=== PATIENT | female | born 1995 | race Caucasian/White ===

== ENCOUNTER 2019-09-25 13:22 | Emergency (ER) | payer BC ==
--- NOTE | 2019-09-25 14:00 | ERPHSYRPT ---
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 states had just gotten home from breakfast and noticed small amount "orange" blood in underwear when going to restroom. pt also states small amount blood noticed when wiping. pt denies any abd pain or cramping. pt states she is 12 wks , confirmed by US. this is first . pt ambulatory to room, and self assist into gown. pt denies pain, and not tender to plapation. pt A& Ox3. Physician History: vaginal bleeding onset just before coming to ER had just gotten home from breakfast and noticed small amount "orange" blood in underwear when going to restroom. pt also states small amount blood noticed when wiping. pt denies any abd pain or cramping. pt states she is 12 wks , confirmed by US. this is first . Timing/Duration: today Activites at Onset: none Onset Location: vaginal Pain Radiation: none Severity of Pain-Max: none Severity of Pain-Current: none Prior abdominal problems: none Sexual intercourse history: non-contributory Modifying Factors: Improves With: nothing Associated Symptoms: denies symptoms Allergies/Adverse Reactions: latex Allergy (Verified 09/25/19 13:32) Home Medications: Vits W-Ca,Fe,FA(<1Mg) [] 1 each PO 09/25/19 [History] Hx Tetanus, Diphtheria Vaccination/Date Given: No Hx Influenza Vaccination/Date Given: No Hx Pneumococcal Vaccination/Date Given: No - Review of Systems Constitutional: No Fever, No Chills Eyes: No Symptoms Ears, Nose, & Throat: No Symptoms Respiratory: No Cough, No Dyspnea Cardiac: No Chest Pain, No Edema, No Syncope Abdominal/Gastrointestinal: No Abdominal Pain, No Nausea, No Vomiting, No Diarrhea Genitourinary Symptoms: No Dysuria Musculoskeletal: No Back Pain, No Neck Pain Skin: No Rash Neurological: No Dizziness, No Focal Weakness, No Sensory Changes Psychological: No Symptoms Endocrine: No Symptoms All Other Systems: Reviewed and Negative - Past Medical History Pertinent Past Medical History: No Neurological History: No Pertinent History ENT History: No Pertinent History Cardiac History: No Pertinent History Respiratory History: No Pertinent History Endocrine Medical History: No Pertinent History Musculoskeletal History: No Pertinent History GI Medical History: No Pertinent History History: No Pertinent History Psycho-Social History: No Pertinent History Female Reproductive Disorders: No Pertinent History - Past Surgical History Past Surgical History: Yes Neuro Surgical History: No Pertinent History Cardiac: No Pertinent History Respiratory: No Pertinent History Gastrointestinal: No Pertinent History Genitourinary: No Pertinent History Musculoskeletal: Other Female Surgical History: No Pertinent History Other Surgical History: broken L elbow, surgical repair - Social History Smoking Status: Never smoker Exposure to second hand smoke: No Drug Use: none Patient Lives Alone: No - Female History Hx Last Menstrual Period: 06/30/19 Hx Now: Yes Expected Date of Delivery: 04/04/20 Gestational Age: 12 - Nursing Vital Signs Nursing Vital Signs: Initial Vital Signs Temperature 98.2 F 09/25/19 13:34 Pulse Rate 91 H 09/25/19 13:34 Respiratory Rate 20 09/25/19 13:34 Blood Pressure 158/85 09/25/19 13:34 O2 Sat by Pulse Oximetry 99 09/25/19 13:34 Pain Scale Pain Intensity 0 - Physical Exam General Appearance: no apparent distress, alert Eye Exam: PERRL/EOMI, eyes nml inspection Ears, Nose, Throat Exam: normal ENT inspection, TMs normal, pharynx normal, moist mucous membranes Neck Exam: normal inspection, non-tender, supple, full range of motion Respiratory Exam: normal breath sounds, lungs clear, No respiratory distress Cardiovascular Exam: regular rate/rhythm, normal heart sounds, normal peripheral pulses Gastrointestinal/Abdomen Exam: soft, No tenderness, No mass Back Exam: normal inspection, normal range of motion, No CVA tenderness, No vertebral tenderness Extremity Exam: normal inspection, normal range of motion, pelvis stable Neurologic Exam: alert, oriented x 3, cooperative, senior credit analyst II-XII nml as tested, normal mood/affect, sensation nml, No motor deficits Skin Exam: normal color, warm, dry Lymphatic Exam: No adenopathy SpO2: 99 - Course Nursing assessment & vital signs reviewed: Yes Ordered Tests: Active Orders 24 hr Category Date Time Status CULTURE,URINE Stat Lab 09/25/19 14:20 Received HCG,QUALITATIVE URINE Stat Lab 09/25/19 14:20 Completed UA W/RFX UR CULTURE Stat Lab 09/25/19 14:20 Completed Lab/Rad Data: Laboratory Results 09/25/19 09/25/19 Range/Units 14:20 14:20 Urine Color YELLOW (YELLOW) Urine Appearance CLOUDY (CLEAR) Urine pH 5.0 (5-6) Ur Specific Sullivan 1.020 (1.005-1.025) Urine Protein NEGATIVE (Negative) Urine Ketones SMALL (NEGATIVE) Urine Blood LARGE (0-5) Anshul/ul Urine Nitrite NEGATIVE (NEGATIVE) Urine Bilirubin NEGATIVE (NEGATIVE) Urine Urobilinogen NEGATIVE (0-1) mg/dL Ur Leukocyte Esterase MODERATE (NEGATIVE) Urine WBC (Auto) 51-100 (0-5) /HPF Urine RBC (Auto) 3-5 (0-2) /HPF U Epithel Cells (Auto) RARE (FEW) /HPF Urine Bacteria (Auto) FEW (NEGATIVE) /HPF Unidentified Crystals >100 (NEGATIVE) /HPF Urine Mucus (Auto) SLIGHT (NEGATIVE) /HPF Urine Culture Reflexed YES (NO) Urine Glucose NEGATIVE (NEGATIVE) mg/dL Urine HCG, Qual POSITIVE (Negative) - Progress Progress: improved Air Movement: good Blood Culture(s) Obtained: No Antibiotics given: No Counseled pt/family regarding: lab results, diagnosis, need for follow-up - Departure Departure Disposition: Home Clinical Impression: and infectious disease in first trimester UTI (urinary tract infection) during Qualifiers: Trimester: first trimester Qualified Code(s): O23.41 - Unspecified infection of urinary tract in , first trimester Condition: Stable Critical Care Time: No Referrals: MAHSA HARMAN [Primary Care Provider] - Instructions: Symptoms, Bleeding With (DC), Urinary Tract Infections in Additional Instructions: start antibiotics which is given to you by Dr Phillips. Discharge/Care Plan JUSTIN GARCIA Viktor was seen on 09/25/19 in the Emergency Room. The patient was counseled regarding Diagnosis,Lab results, Imaging studies, need for follow up and when to return to the Emergency Room. Prescriptions given: Discharge Note I have spoken with the patient and/or caregivers. I have explained the patient' s condition, diagnosis and treatment plan based on the information available to me at this time. I have answered the patient's and/or caregiver's questions and addressed any concerns. The patient and/or caregivers have as good understanding of the patient's diagnosis, condition and treatment plan as can be expected at this point. The vital signs have been stable. The patient's condition is stable and appropriate for discharge from the emergency department. The patient will pursue further outpatient evaluation with the primary care physician or other designated or consulting physician as outlined in the discharge instructions. The patient and/or caregivers are agreeable to this plan of care and follow-up instructions have been explained in detail. The patient and/or caregivers have received these instruction. The patient/and or caregivers are aware that any significant change in condition or worsening of symptoms should prompt an immediate return to this or the closest emergency department or call 911. JUSTIN GARCIA Viktor was seen on 09/25/19 n the Emergency Room. At that time you were treated for an emergent condition, during your visit Laboratory, Radiology and/or other procedures may have been ordered. It is very important that you follow-up with your Primary Care Physician MAHSA HARMAN within the next 24-48 hours to review your Emergency Room visit and the final results of testing that was ordered. Some test results such as Urine Cultures, Blood Cultures, and other cultures if ordered will not be finalized for 24-48 hours. If you do not have a Primary Care Provider please call the medical records department at [phone] to obtain a copy of your results or you may sign into our patient portal to obtain these results by visiting us @ [email or web address] and completing the following steps: 1. Click on the Patient Portal link 2. Click the Patient Self Enrollment Link to complete the enrollment form and entering your 3. Once the enrollment form is completed you will receive an email with a temporary ID and password at the email address you provided. 4. Next choose a user name and password. Your user name must be at least 4 characters long and your password must be at least 4 characters long. 5. Choose a security question from the list and provide your answer to the question. If you already have signed into the Health Portal you may access your Health Care Information 31/03 by the following steps: 1. Login to our website @ [email or web address] 2. Enter your original user name and password. FAQS The [facility] Health Portal is an online tool that contains your Lab Results, Radiology Reports, Visit History, Discharge Instructions and Health Summary Lab and Radiology Results will not be available for 72 hours on the portal. The Portal is a secure site, passwords are encryted and URLs are re-written so they cannot be copied and pasted. You and authorized family members are the only ones who can access your Portal. Also there is a timeout feature that protects your information if you leave the Portal page open. If you have technical difficulty please use the Contact Us link on the page this will allow you to submit any questions you have regarding the Portal or you may contact the Medical Record Department at [phone] ext [phone].
[2019-09-25 14:35] VITALS: BP 115/67; PULSE 82
[2019-09-25 14:41] LABS: Appearance CLOUDY (CLEAR); Bacteria FEW /HPF (NEGATIVE); Bilirubin NEGATIVE (NEGATIVE); Blood LARGE Ery/ul (0-5); Crystals Unidentified >100 /HPF (NEGATIVE); Epithelial Cells RARE /HPF (FEW); Glucose NEGATIVE (NEGATIVE); Ketones SMALL (NEGATIVE); Leukocyte Esterase MODERATE (NEGATIVE); Mucus SLIGHT /HPF (NEGATIVE); Nitrite NEGATIVE (NEGATIVE); Protein,Urine Dip NEGATIVE (Negative); Urobilinogen NEGATIVE mg/dL (0-1); WBC 51-100 /HPF (0-5)
[2019-09-25 14:47] VITALS: O2SAT 99
== END 2019-09-25 14:59 | disposition home or self-care (01) ==
LOC: ED 13:22
DX: O23.41 Unspecified infection of urinary tract in pregnancy, first trimester (principal); Z3A.12 12 weeks gestation of pregnancy
CPT/HCPCS: 81001; 84703; 87077; 87086; 87186; 99283

== ENCOUNTER 2020-03-01 10:41 | Observation (INO) | payer BC ==
[2020-03-01 11:17] VITALS: PULSE 117
[2020-03-01 12:33] VITALS: BP 121/60
--- NOTE | 2020-03-01 12:54 | XRAY ---
Indication: Size less than dates. Ultrasound biophysical profile study was performed. There is a single viable intrauterine with heart rate 142 BPM. Four-quadrant TREVIN is 10.3 cm. 2 points given for breathing, movements, tone, and qualitative amniotic fluid volume. Impression: Total biophysical profile score is 8 out of 8.
--- NOTE | 2020-03-01 12:58 | XRAY ---
Indication: Size less than dates. 2-dimensional OB ultrasound performed. Comparison: February 14, 2020. Again there is a single viable intrauterine in cephalic presentation. heart rate 142 BPM. anatomy previously documented. Anterior placenta without abruption/previa. Cervical length is 2.4 cm. BPD measures 7.60 cm corresponding to 30 weeks 3 days. HC measures 28.00 cm corresponding to 30 weeks 5 days. AC measures 29.51 cm corresponding to 33 weeks 3 days. FL measures 6.08 cm corresponding to 31 weeks 4 days. Estimated weight 4 lbs. 5 oz., +/-10 ounces. Approximately 4 percentile. TREVIN is 10.3 cm. Impression: Again single viable intrauterine with mean gestational age 31 weeks 4 days. There has been no significant progression of . Fetus continues to measure smaller now 22 days smaller with respect to first exam August 18, 2019.
[2020-03-01 13:35] LABS: Absolute Neutrophil Ct (ANC) 8.09 (1.4-6.9); BASOPHIL % 0.2 % (0.0-0.4); Basophil (Absolute #) 0.02 (0-0.4); Eosinophil % 0.7 % (0.00-5.0); Eosinophil (Absolute #) 0.07 (0-0.5); Hematocrit 34.5 % (35-47); Hemoglobin 11.4 gm/dl (12.0-16.0); Lymphocyte (Absolute #) 1.63 (1.0-4.6); Lymphocytes % 15.3 % (24.0-44.0); Mean Cell Volume 93.8 fl (78-100); Mean Platelet Volume 11.9 fl (7.5-11.0); Monocyte (Absolute #) 0.83 (0.0-1.3); Monocytes % 7.8 % (0.0-12.0); Platelet Count 209 K/mm3 (150-450); Red Blood Count 3.68 M/mm3 (4.1-5.4); Red Cell Distribution Width 13.9 % (11.5-14.0); White Blood Count 10.6 K/mm3 (4.0-10.5)
[2020-03-01 13:36] LABS: Appearance SLIGHTLY CLOUDY (CLEAR); Bilirubin NEGATIVE (NEGATIVE); Blood NEGATIVE Ery/ul (0-5); Glucose NEGATIVE (NEGATIVE); Ketones NEGATIVE (NEGATIVE); Leukocyte Esterase TRACE (NEGATIVE); Nitrite POSITIVE (NEGATIVE); Protein,Urine Dip NEGATIVE (Negative); Specific Gravity 1.008 (1.005-1.025); Urobilinogen NEGATIVE mg/dL (0-1)
[2020-03-03 14:40] LABS: RPR Screen Non Reactive (Non Reactive)
== END 2020-03-01 13:15 | disposition home or self-care (01) ==
LOC: OB 10:41
PROVIDERS: ADMIT Family Medicine; ATTEND Family Medicine
DX: Z34.91 Encounter for supervision of normal pregnancy, unspecified, first trimester (principal)
CPT/HCPCS: 0064U; 36415; 59025; 76816; 76819; 81003; 85025; 86317; 86592; 86593; G0378

== ENCOUNTER 2020-03-09 07:13 | Observation (INO) | payer BC ==
[2020-03-09 17:51] VITALS: BP 123/57; PULSE 97; O2SAT 96
--- NOTE | 2020-03-09 18:32 | XRAY ---
Indication: Intrauterine growth retardation. Ultrasound biophysical profile study was performed and compared to March 01, 2020. There is again a single viable intrauterine with heart rate 163 BPM. Four-quadrant TREVIN is 10.9 cm, previously 10.3 cm. Cervical length is 2.4 cm. 2 points given for breathing, tone, and qualitative amniotic fluid volume. 0 points for movement. Impression: Total biophysical profile score is now 6 out of 8, previously 8 out of 8.
== END 2020-03-09 17:55 | disposition home or self-care (01) ==
LOC: EDSTATUS 15:56 → OB 15:57
PROVIDERS: ADMIT Family Medicine; ATTEND Family Medicine
DX: O35.8XX9 Maternal care for other (suspected) fetal abnormality and damage, other fetus (principal)
CPT/HCPCS: 59025; 76819; G0378

== ENCOUNTER 2020-07-27 05:28 | Emergency (ER) | payer BC ==
--- NOTE | 2020-07-27 07:01 | ERPHSYRPT ---
- History of Present Illness Source: patient Exam Limitations: no limitations Patient Subjective Stated Complaint: pt states she is approx 12 wks gestation with twins and had some bright red blood when she wiped tonight. Triage Nursing Assessment: pt alert and oriented, answers questions approp. pt ambualtory with steady gait noted. respirations ononlabored. skin pink warm and dry. Timing/Duration: today Activites at Onset: sleep Quality: other (No pain) Onset Location: other (No pain) Pain Radiation: none Severity of Pain-Max: none Severity of Pain-Current: none Modifying Factors: Improves With: other (Dental bleeding) Associated Symptoms: denies symptoms Hx Tetanus, Diphtheria Vaccination/Date Given: Yes Hx Influenza Vaccination/Date Given: Yes (2019) Hx Pneumococcal Vaccination/Date Given: No Immunizations Up to Date: Yes <NHUNG BROTHERS - Last Filed: 07/27/20 06:56> <GERMAINE OBANDO - Last Filed: 07/27/20 09:24> - History of Present Illness Time Seen by Provider: 07/27/20 06:25 Physician History: This is a 24-year-old white female who is 12 weeks with twins. She sees a OB specialist tomorrow, and her primary OB next Friday. Patient denies abdominal pain or cramping. 5 days ago she noticed vaginal spotting. This morning, there was a significant amount of blood present so she came into the emergency department for evaluation. Patient has had no nausea vomiting or diarrhea. She has no chest pain or shortness of breath. (NHUNG BROTHERS) Allergies/Adverse Reactions: latex Allergy (Verified 07/27/20 06:13) Home Medications: Vits W-Ca,Fe,FA(<1Mg) [] 1 each PO DAILY 09/25/19 [History] Loratadine 10 mg [Claritin 10 mg] 10 mg PO DAILY PRN PRN 03/01/20 [History] Cephalexin Mh 500 mg [Keflex 500 mg] 500 mg PO BID 03/09/20 [History] Travel Risk - International Travel Have you traveled outside of the country in past 3 weeks: No - Coronavirus Screening Are you exhibiting any of the following symptoms?: No Close contact with a COVID-19 positive Pt in past 14-21 Days: No <NHUNG BROTHERS - Last Filed: 07/27/20 06:56> - Past Medical History Pertinent Past Medical History: No Neurological History: No Pertinent History ENT History: No Pertinent History Cardiac History: No Pertinent History Respiratory History: No Pertinent History Endocrine Medical History: No Pertinent History Musculoskeletal History: No Pertinent History GI Medical History: No Pertinent History History: No Pertinent History Psycho-Social History: No Pertinent History Female Reproductive Disorders: No Pertinent History - Past Surgical History Past Surgical History: Yes Neuro Surgical History: No Pertinent History Cardiac: No Pertinent History Respiratory: No Pertinent History Gastrointestinal: No Pertinent History Genitourinary: No Pertinent History Musculoskeletal: Orthopedic Surgery, Other Female Surgical History: No Pertinent History Other Surgical History: broken L elbow, surgical repair - Social History Smoking Status: Never smoker Exposure to second hand smoke: No Drug Use: none Patient Lives Alone: No - Female History Hx Last Menstrual Period: 04/26/2020 Hx Now: Yes Expected Date of Delivery: 02/04/21 Gestational Age: 12 weeks <NHUNG BROTHERS - Last Filed: 07/27/20 06:56> - Review of Systems Constitutional: No Symptoms Eyes: No Symptoms Ears, Nose, & Throat: No Symptoms Respiratory: No Symptoms Cardiac: No Symptoms Abdominal/Gastrointestinal: No Symptoms Genitourinary Symptoms: Vaginal Bleeding Musculoskeletal: No Symptoms Skin: No Symptoms Neurological: No Symptoms Psychological: No Symptoms Endocrine: No Symptoms Hematologic/Lymphatic: No Symptoms Immunological/Allergic: No Symptoms All Other Systems: Reviewed and Negative <NHUNG BROTHERS - Last Filed: 07/27/20 06:56> - Physical Exam General Appearance: no apparent distress, alert, anxiety Eye Exam: PERRL/EOMI, eyes nml inspection Ears, Nose, Throat Exam: normal ENT inspection, moist mucous membranes Neck Exam: normal inspection, non-tender, supple, full range of motion Respiratory Exam: normal breath sounds, lungs clear, No chest tenderness, No respiratory distress, No airway intact Cardiovascular Exam: tachycardia Gastrointestinal/Abdomen Exam: soft, normal bowel sounds, No tenderness Rectal Exam: not done Back Exam: normal inspection, normal range of motion, No CVA tenderness Extremity Exam: normal inspection, normal range of motion, pelvis stable Neurologic Exam: alert, oriented x 3, cooperative, hide inspector and sorter II-XII nml as tested, normal mood/affect, nml cerebellar function, nml station & gait, sensation nml Skin Exam: normal color, warm, dry Lymphatic Exam: No adenopathy SpO2 Interpretation: normal SpO2: 98 O2 Delivery: Room Air <NHUNG BROTHERS - Last Filed: 07/27/20 06:56> - Nursing Vital Signs Nursing Vital Signs: Initial Vital Signs Temperature 98.1 F 07/27/20 06:05 Pulse Rate 106 H 07/27/20 06:05 Respiratory Rate 18 07/27/20 06:05 Blood Pressure 115/83 07/27/20 06:05 O2 Sat by Pulse Oximetry 98 07/27/20 06:05 Pain Scale Pain Intensity 0 - Course Nursing assessment & vital signs reviewed: Yes <NHUNG BROTHERS - Last Filed: 07/27/20 06:56> - Radiology Ultrasound Exam OB Ultrasound: Other (Viable intrauterine twin in comparison to 06/19/2020; twin measures 12 weeks and 6 days with normal progression of . No new/acute findings; no abnormal subchorionic fluid collection) <GERMAINE OBANDO - Last Filed: 07/27/20 09:24> Ordered Tests: Active Orders 24 hr Category Date Time Status Orthostatic Vital Signs STAT Care 07/27/20 07:37 Active OB <14 WKS 1ST GESTATION [US] Stat Exams 07/27/20 06:51 Completed OB <14 WKS ADDL GESTATION [US] Routine Exams 07/27/20 07:13 Taken CBC W DIFF Stat Lab 07/27/20 06:50 Completed CMP Stat Lab 07/27/20 06:50 Completed CULTURE,URINE Stat Lab 07/27/20 06:52 Received PT INR [PROTIME WITH INR] Stat Lab 07/27/20 07:35 Completed PTT Stat Lab 07/27/20 07:35 Completed UA W/RFX UR CULTURE Stat Lab 07/27/20 06:52 Completed Lab/Rad Data: Laboratory Result Diagrams 07/27/20 06:50 07/27/20 06:50 Laboratory Results 07/27/20 07/27/20 07/27/20 Range/Units 07:35 06:52 06:50 WBC (4.0-10.5) K/mm3 RBC (4.1-5.4) M/mm3 Hgb (12.0-16.0) gm/dl Hct (35-47) % MCV (78-100) fl MCH (26-32) pg MCHC (32-36) g/dl RDW (11.5-14.0) % Plt Count (150-450) K/mm3 MPV (7.5-11.0) fl Gran % (36.0-66.0) % Eos # (Auto) (0-0.5) Absolute Lymphs (auto) (1.0-4.6) Absolute Monos (auto) (0.0-1.3) Lymphocytes % (24.0-44.0) % Monocytes % (0.0-12.0) % Eosinophils % (0.00-5.0) % Basophils % (0.0-0.4) % Absolute Granulocytes (1.4-6.9) Basophils # (0-0.4) PT 11.8 (9.95-12.35) SECONDS INR 1.04 (0.8-3.0) APTT 26.9 (25.3-37.0) SECONDS Sodium 134 L (137-145) mmol/L Potassium 3.8 (3.5-5.1) mmol/L Chloride 107 (98-107) mmol/L Carbon Dioxide 23 (22-30) mmol/L Anion Gap 7.8 (5-15) MEQ/L BUN 4 L (7-17) mg/dL Creatinine 0.51 L (0.52-1.04) mg/dL Estimated GFR > 60.0 ML/MIN Glucose 90 (74-106) mg/dL Calcium 9.4 (8.4-10.2) mg/dL Total Bilirubin 0.20 (0.2-1.3) mg/dL AST 21 (14-36) U/L ALT 17 (0-35) U/L Alkaline Phosphatase 83 (38-126) U/L Serum Total Protein 6.6 (6.3-8.2) g/dL Albumin 3.4 L (3.5-5.0) g/dL Urine Color YELLOW (YELLOW) Urine Appearance SLIGHTLY CLOUDY (CLEAR) Urine pH 6.0 (5-6) Ur Specific Scott 1.019 (1.005-1.025) Urine Protein 30 (Negative) Urine Ketones NEGATIVE (NEGATIVE) Urine Blood LARGE (0-5) Anshul/ul Urine Nitrite NEGATIVE (NEGATIVE) Urine Bilirubin NEGATIVE (NEGATIVE) Urine Urobilinogen NEGATIVE (0-1) mg/dL Ur Leukocyte Esterase SMALL (NEGATIVE) Urine WBC (Auto) 6-10 (0-5) /HPF Urine RBC (Auto) 3-5 (0-2) /HPF U Epithel Cells (Auto) RARE (FEW) /HPF Urine Bacteria (Auto) RARE (NEGATIVE) /HPF Urine Mucus (Auto) SLIGHT (NEGATIVE) /HPF Urine Culture Reflexed YES (NO) Urine Glucose NEGATIVE (NEGATIVE) mg/dL 07/27/20 Range/Units 06:50 WBC 8.7 (4.0-10.5) K/mm3 RBC 4.24 (4.1-5.4) M/mm3 Hgb 12.2 (12.0-16.0) gm/dl Hct 37.0 (35-47) % MCV 87.3 (78-100) fl MCH 28.8 (26-32) pg MCHC 33.0 (32-36) g/dl RDW 15.4 H (11.5-14.0) % Plt Count 208 (150-450) K/mm3 MPV 12.5 H (7.5-11.0) fl Gran % 67.2 H (36.0-66.0) % Eos # (Auto) 0.13 (0-0.5) Absolute Lymphs (auto) 2.08 (1.0-4.6) Absolute Monos (auto) 0.62 (0.0-1.3) Lymphocytes % 24.0 (24.0-44.0) % Monocytes % 7.1 (0.0-12.0) % Eosinophils % 1.5 (0.00-5.0) % Basophils % 0.2 (0.0-0.4) % Absolute Granulocytes 5.83 (1.4-6.9) Basophils # 0.02 (0-0.4) PT (9.95-12.35) SECONDS INR (0.8-3.0) APTT (25.3-37.0) SECONDS Sodium (137-145) mmol/L Potassium (3.5-5.1) mmol/L Chloride (98-107) mmol/L Carbon Dioxide (22-30) mmol/L Anion Gap (5-15) MEQ/L BUN (7-17) mg/dL Creatinine (0.52-1.04) mg/dL Estimated GFR ML/MIN Glucose (74-106) mg/dL Calcium (8.4-10.2) mg/dL Total Bilirubin (0.2-1.3) mg/dL AST (14-36) U/L ALT (0-35) U/L Alkaline Phosphatase (38-126) U/L Serum Total Protein (6.3-8.2) g/dL Albumin (3.5-5.0) g/dL Urine Color (YELLOW) Urine Appearance (CLEAR) Urine pH (5-6) Ur Specific Scott (1.005-1.025) Urine Protein (Negative) Urine Ketones (NEGATIVE) Urine Blood (0-5) Anshul/ul Urine Nitrite (NEGATIVE) Urine Bilirubin (NEGATIVE) Urine Urobilinogen (0-1) mg/dL Ur Leukocyte Esterase (NEGATIVE) Urine WBC (Auto) (0-5) /HPF Urine RBC (Auto) (0-2) /HPF U Epithel Cells (Auto) (FEW) /HPF Urine Bacteria (Auto) (NEGATIVE) /HPF Urine Mucus (Auto) (NEGATIVE) /HPF Urine Culture Reflexed (NO) Urine Glucose (NEGATIVE) mg/dL - Progress Counseled pt/family regarding: lab results, diagnosis, rad results <NHUNG BROTHERS - Last Filed: 07/27/20 06:56> - Progress Progress: improved Discussed with : Geno (At 09:15, spoke with Dr. De Oliveira, covering for patient's primary OB, Dr. Levine. In discussion of the lab work, urinalysis and ultrasound, Dr. De Oliveira felt patient was fine to be discharged home and will start the patient on cefazolin equivalent of cephalexin orally since patient had in May) Will see patient in: office <GERMAINE OBANDO - Last Filed: 07/27/20 09:24> - Progress Progress Note: 07/27/20 07:05 I reviewed patient history, condition physical findings and pending laboratory and x-ray studies. I transferred care to Dr. Obando at time of shift change and he accepts the patient and will make the final disposition. (NHUNG BROTHERS) 07/27/20 09:12 Patient denies any vaginal bleeding or leakage of fluids. She denies any abdominal pain, back pain, flank pain or any fever subjectively and she had a soft abdomen with no tenderness on repeat examination 07/27/20 09:22 Patient had her care transferred to or to evaluate and follow-up imaging studies and lab work due to having concerns for potential bleeding as she is 12 weeks with twins. Patient's ultrasound showed viable twin with no change from previous comparison ultrasound with no signs of any significant subchorionic fluid accumulation and her lab work was within normal limits, but her urinalysis showed some signs of potential infection and reviewing past urine cultures there was E. coli that grew out twice, with one most recently May 2020 that was susceptible to cefazolin, so patient be discharged home with a 5- day course of Keflex and will adjust medication according to urine culture as needed. Patient has an appointment with maternal- medicine in [place], [place] on 07/28/2020 and patient understands to keep that appointment. I reviewed with patient in detail with signs and symptoms return back to emergency room as on reevaluation patient was asymptomatic and had no concerning signs on her vitals and lab work that required further inpatient monitoring or further treatment in the emergency department or as an inpatient or on labor and delivery. (GERMAINE OBANDO) - Departure Departure Disposition: Home Critical Care Time: No <NHUNG BROTHERS - Last Filed: 07/27/20 06:56> <GERMAINE OBANDO - Last Filed: 07/27/20 09:24> - Departure Clinical Impression: Vaginal bleeding in patient after first trimester, Acute cystitis with hematuria Condition: Stable Referrals: CATY LEVINE MD [Primary Care Provider] - Follow Up with PCP/3 days Instructions: Threatened Miscarriage (DC), Bleeding With (DC) Additional Instructions: Return immediately back to the emergency room if any new abdominal pain, new fever, new vaginal bleeding, new leakage of fluid, any swelling in her hands or face, new overwhelming headache, new vision changes, new swelling on 1 side of the body of your extremities versus the other, new shortness of breath, new loss of smell, new cough or any other concerning signs or symptoms that were not present at today's emergency room visit for immediate reevaluation in the emergency department Prescriptions: Cephalexin Mh 500 mg [Keflex 500 mg] 500 mg PO TID #15 capsule
[2020-07-27 07:13] LABS: Absolute Neutrophil Ct (ANC) 5.83 (1.4-6.9); BASOPHIL % 0.2 % (0.0-0.4); Basophil (Absolute #) 0.02 (0-0.4); Eosinophil % 1.5 % (0.00-5.0); Eosinophil (Absolute #) 0.13 (0-0.5); Hemoglobin 12.2 gm/dl (12.0-16.0); Lymphocyte (Absolute #) 2.08 (1.0-4.6); Mean Cell Volume 87.3 fl (78-100); Mean Corpuscular Hemoglobin 28.8 pg (26-32); Mean Platelet Volume 12.5 fl (7.5-11.0); Monocyte (Absolute #) 0.62 (0.0-1.3); Monocytes % 7.1 % (0.0-12.0); Neutrophil % 67.2 % (36.0-66.0); Platelet Count 208 K/mm3 (150-450); Red Blood Count 4.24 M/mm3 (4.1-5.4); Red Cell Distribution Width 15.4 % (11.5-14.0); White Blood Count 8.7 K/mm3 (4.0-10.5)
[2020-07-27 07:44] LABS: ALBUMIN 3.4 g/dL (3.5-5.0); ALKALINE PHOSPHATASE 83 U/L (38-126); BLOOD UREA NITROGEN 4 mg/dL (7-17); CHLORIDE 107 mmol/L (98-107); Calcium 9.4 mg/dL (8.4-10.2); Carbon Dioxide 23 mmol/L (22-30); Creatinine 1 0.51 mg/dL (0.52-1.04); EST GLOMERULAR FILTRATION RATE > 60.0 ML/MIN; Glucose 90 mg/dL (74-106); SGOT/AST 21 U/L (14-36); SGPT/ALT 17 U/L (0-35); SODIUM 134 mmol/L (137-145); Total Protein 6.6 g/dL (6.3-8.2)
[2020-07-27 07:46] LABS: Potassium 3.8 mmol/L (3.5-5.1)
[2020-07-27 07:46] LABS: Appearance SLIGHTLY CLOUDY (CLEAR); Bacteria RARE /HPF (NEGATIVE); Bilirubin NEGATIVE (NEGATIVE); Blood LARGE Ery/ul (0-5); Epithelial Cells RARE /HPF (FEW); Glucose NEGATIVE (NEGATIVE); Ketones NEGATIVE (NEGATIVE); Leukocyte Esterase SMALL (NEGATIVE); Mucus SLIGHT /HPF (NEGATIVE); Nitrite NEGATIVE (NEGATIVE); Protein,Urine Dip 30 (Negative); Specific Gravity 1.019 (1.005-1.025); Urobilinogen NEGATIVE mg/dL (0-1)
[2020-07-27 07:49] LABS: INR 1.04 (0.8-3.0); PROTIME 11.8 SECONDS (9.95-12.35)
[2020-07-27 07:52] LABS: PTT 26.9 SECONDS (25.3-37.0)
[2020-07-27 07:55] LABS: ANION GAP 7.8 MEQ/L (5-15)
[2020-07-27 08:56] VITALS: O2SAT 98
--- NOTE | 2020-07-27 09:06 | XRAY ---
Indication: Vaginal bleeding. Known twin . Limited transabdominal early OB ultrasound performed. Comparison: June 19, 2020. Again there is intrauterine twin appearing monochorionic diamniotic. Twin A mean crown-rump length is 6.57 cm corresponding to 12 weeks 6 days. heart rate 147 BPM. No abnormal subchorionic fluid collection. Visualized left ovary unremarkable. Right ovary not seen. No suspicious adnexal mass or free fluid. Impression: Again viable intrauterine twin . Twin A measures 12 weeks 6 days with normal progression of . No new/acute findings.
--- NOTE | 2020-07-27 09:08 | XRAY ---
Indication: Vaginal bleeding. Known twin . Limited transabdominal early OB ultrasound performed. Comparison: June 19, 2020. Again there is intrauterine twin appearing monochorionic diamniotic. Twin B mean crown-rump length is 6.55 cm corresponding to 12 weeks 6 days. heart rate 154 BPM. No abnormal subchorionic fluid collection. Impression: Again viable intrauterine twin . Twin A measures 12 weeks 6 days with normal progression of . No new/acute findings.
[2020-07-27 10:20] VITALS: BP 122/66; PULSE 88
== END 2020-07-27 10:20 ==
LOC: ED 05:28
DX: O20.9 Hemorrhage in early pregnancy, unspecified (principal); Z3A.11 11 weeks gestation of pregnancy; N30.01 Acute cystitis with hematuria
CPT/HCPCS: 36000; 36415; 76801; 76802; 80053; 81001; 85025; 85610; 85730; 87086; 99284